=== PATIENT | male | born 1950 | race Caucasian/White ===

== ENCOUNTER 2020-12-05 09:57 | Outpatient (CLI) | payer OTHER ==
--- NOTE | 2020-12-05 11:01 | CT ---
EXAM: CT chest without contrast per low-dose cancer screening protocol HISTORY: History of smoking and nicotine dependence. The patient smoked for 40 years and quit one yea r ago. COMPARISON: None TECHNIQUE: Multiple contiguous axial images were obtained in a CT of the chest without contrast per l ow-dose cancer screening protocol. Sagittal and coronal reformats were performed. FINDINGS: Pulmonary nodules: Emphysematous changes are seen in the lungs. There is a calcified granuloma in the right lower lobe. No suspicious pulmonary nodules are seen. No focal infiltrates are seen. Pleural space: No pneumothorax or pleural effusion are seen. Heart: The heart is normal in size. Atherosclerotic calcifications are seen in the aorta. Mediastinum: No hilar or mediastinal lymphadenopathy appreciated on this limited noncontrast examinat ion. Bones: Degenerative changes in the spine. Visualized subdiaphragmatic structures: Unremarkable. The patient is status post cholecystectomy. IMPRESSION: Lung RADS category 2-benign findings.
== END 2020-12-05 09:58 | disposition home or self-care (01) ==
LOC: BICCT 09:57
DX: Z12.2 Encounter for screening for malignant neoplasm of respiratory organs (principal); Z87.891 Personal history of nicotine dependence
CPT/HCPCS: 71271